=== PATIENT | male | born 1965 | race African-American/Black ===

== ENCOUNTER → 2024-01-23 14:51 | Outpatient (REF) | payer BC, SELFPAY | LOC: HWRAD 14:51 | PROVIDERS: ATTENDING PHYSICIAN Internal Medicine; FAMILY PHYSICIAN Internal Medicine | DX: R79.89 Other specified abnormal findings of blood chemistry (principal); I10 Essential (primary) hypertension | CPT/HCPCS: 76770 ==

== ENCOUNTER 2024-08-03 13:32 | Emergency (ER) | payer BC, SELFPAY ==
[2024-08-03] VITALS (12 sets, daily range): BP systolic 102–137; BP diastolic 76–101
[2024-08-03 14:10] LABS: % Basophils 0.5 % (0-2); % Eosinophils 0.5 % (0-6); % Immature Granulocytes 0.3 % (0-0.5); % Lymphocytes 13.8 % (20.5-51.1); % Monocytes 9.2 % (1.7-9.3); % Neutrophils 75.7 % (42.2-75.2); Absolute Lymphocytes 0.8 10^3/uL (1.2-3.4); Absolute Monocytes 0.5 10^3/uL (0.1-0.6); Absolute Neutrophils 4.4 10^3/uL (1.4-6.5); Hematocrit 47.2 % (39.0-52.0); Hemoglobin 15.7 g/dL (13.0-18.0); Mean Corp Hgb Conc. 33.3 g/dL (33.0-37.0); Mean Corpuscular Hgb 29.7 pg (27.0-31.0); Mean Corpuscular Volume 89.4 fL (80.0-94.0); Mean Platelet Volume 9.8 fL (7.4-10.4); Nucleated Red Blood Cells % 0 % (-); Platelet Count 274 10^3/uL (130-400); Red Blood Cell Count 5.28 10^6/uL (4.70-6.10); Red Cell Dist. Width 12.9 % (11.5-14.5); White Blood Cell Count 5.8 10^3/uL (4.8-10.8)
[2024-08-03 14:28] LABS: ALT (SGPT) 26 U/L (0-50); AST (SGOT) 27 U/L (17-59); Alkaline Phosphatase 44 U/L (38-126); Blood Urea Nitrogen 15 mg/dl (9-20); Calcium 9.6 mg/dl (8.4-10.2); Carbon Dioxide 26 mmol/L (22-30); Chloride 102 mmol/L (98-107); Glucose 95 mg/dl (70-99); Potassium 4.9 mmol/L (3.5-5.1); Sodium 140 mmol/L (135-145); Total Bilirubin 0.5 mg/dl (0.2-1.3); eGFR > 60.00
[2024-08-03 14:34] LABS: Troponin I < 0.012 ng/ml
--- NOTE | 2024-08-03 15:36 | ED.GENMED ---
History of Present Illness
General
Chief Complaint: Blood Pressure Problem
Source: patient
Exam Limitations: none
Time Seen by Provider: 08/03/24 15:26
Nursing documentation reviewed up to this point in time: agreed with
History of Present Illness
History of Present Illness:
Patient to ED with complaint of elevated BP readings. Noticed an increase this weekend Reports systolic BP 140's 150's which is high for him. Denies any cp/pressure, SOB. Denies any DOWD, dizziness. States he felt some tingling in his left arm
today, this has resolved. Taking amlodipine and losartan in the AM daily and reports compliance with meds. To ED accompanied by spouse for eval.
Past History
Past History
ED Past Medical History: None
ED Past Surgical History: None
Social History
Tobacco: Non-smoker
Alcohol: None
Drug: None
Employment: Employed
Review of Systems
Review of Systems
All Other Systems: ROS reviewed and negative except as documented in HPI and ROS
Constitutional: Reports no symptoms
EENT: Reports no symptoms
Respiratory: Reports no symptoms
Cardiac: Reports other (Elevated BP readings)
ABD/GI: Reports no symptoms
: Reports no symptoms
Musculoskeletal: Reports no symptoms
Skin: Reports no symptoms
Neurological: Reports other (Tingling in left arm earlier today.)
Psychiatric: Reports no symptoms
Phy Exam
General Physical Exam
General Presentation: well appearing and no apparent distress
General age: appears stated age
General Skin: warm and dry
General Habitus: normal
General Mental: alert
Cardiovascular Exam
Cardiovascular Exam: regular rate/rhythm and no edema
Pulmonary Exam
Pulmonary Exam: lungs clear and no respiratory distress
Musculoskeletal Exam
Musculoskeletal Exam: full ROM and neuro vasc intact
Skin Exam
Skin Exam: normal color, warm/dry and no rash
Psychiatric Exam
Psychiatric Exam: normal mood/affect
Course
Orders/Labs/Results
Orders:
Orders
08/03/24 13:41
Electrocardiogram (*1) Urgent
Reason for Study: Vertigo / Dizzy
EKG- Treatment ONCE
08/03/24 13:54
Complete Blood Count/With Diff Urgent
Comprehensive Metabolic Panel Urgent
Troponin I Urgent
08/03/24 16:36
EKG [Electrocardiogram (*1)] Urgent
Reason for Study: Hypertension, Benign
08/03/24 16:37
EKG- Treatment ONCE
08/03/24 16:45
Troponin I Urgent
Abnormal Lab Results
08/03/24
13:54
Absolute Lymphs (auto) 0.8 L 10^3/uL
(1.2-3.4)
Neutrophils % 75.7 H %
(42.2-75.2)
Lymphocytes % 13.8 L %
(20.5-51.1)
08/03/24 13:54
08/03/24 13:54
Vital Signs
Initial and Last Documented VS:
Initial Vital Signs
Temp Pulse Resp BP Pulse Ox
98.1 F 89 18 137/86 96
08/03/24 13:38 08/03/24 13:38 08/03/24 13:38 08/03/24 13:38 08/03/24 13:38
Last Documented Vital Signs
Temp Pulse Resp BP Pulse Ox
98.1 F 89 18 109/84 96
08/03/24 13:38 08/03/24 13:38 08/03/24 13:38 08/03/24 17:30 08/03/24 13:38
MDM/Problems Addressed
Differential Diagnosis Includes:
Patient to ED for elevated BP readings this weekend. Today noted LUE tingling. COmplaint with current medication regime, Amlodipine and Losartan q AM. BP systolic running mid 130's in ED. Tingling in arm has resolved. No chest pain reported.
NO SOB. He will continue to monitor BP at home. May take losartan 50mg BID if BP is elevated in evenings. WIll follow up with PCP in AM. Given instructions on s/s to return to ED and he is agreeable to plan. DDx
*Pulse Oximetry
Patient hypoxic: no
*EKG
Interpretation: normal
Rate: normal
Rhythm: sinus
*Critical Care Note
Total Time (30-74mins, 75-104mins- exclusive of procedures): Not Applicable
ED Attending Note
-
Portions of this chart may have been created with voice recognition software.� Occasional wrong word or��sound alike� substitutions may have occurred due to the inherent limitations of voice recognition software.
Discharge Plan
Departure
Patient Disposition: Home (Routine Discharge)
Date of Disposition: 08/03/24
Time of Disposition: 17:34
Patient with high blood pressure during this ER visit?: Yes
Discharge Problem:
Elevated blood pressure reading
Instructions: High Blood Pressure (DC)
Prescriptions:
New
losartan 50 mg tablet
50 mg PO BID Qty: 60 0RF
No Action
aspirin 81 MG tablet,delayed release (DR/EC)
81 mg PO DAILY
cholecalciferol (vitamin D3) 1,250 MCG capsule
1,250 mcg PO DAILY
Referrals:
Grady Flores MD [Family Provider] - Tomorrow
Activity Restrictions/Additional Instructions:
Increase Losartan to 50mg every 12 hours.
Interventions
Interventions:
*Risk Screen - Suicide Last Done: 08/03/24 13:40
*General Assessment Last Done: 08/03/24 17:43
*Neglect/Abuse Screening Last Done: 08/03/24 13:40
ED- Fall Risk Assessment Last Done: 08/03/24 17:43
*ED COVID-19 Vaccine History Last Done: 08/03/24 17:43
*Nursing Disposition Last Done: 08/03/24 17:43
ED- Cardiac Assessment Last Done: 08/03/24 15:56
ED- Neurological Assessment Last Done: 08/03/24 15:56
ED- Pulmonary Assessment Last Done: 08/03/24 15:56
Discharge Date and Time
Discharge Date/Time: 08/03/24 17:44
Print Language: ROMANIAN
[2024-08-03 17:27] LABS: Troponin I < 0.012 ng/ml
== END 2024-08-03 17:44 | disposition home or self-care (01) ==
LOC: EMR 13:32
PROVIDERS: Nurse Practitioner; Student in an Organized Health Care Education/Training Program; EMERGENCY PHYSICIAN Emergency Medicine; FAMILY PHYSICIAN Internal Medicine
DX: I10 Essential (primary) hypertension (principal); Z79.899 Other long term (current) drug therapy
CPT/HCPCS: 99283; 80053; 84484; 85025; 93005

== ENCOUNTER 2024-08-09 12:42 | Emergency (ER) | payer BC, SELFPAY ==
[2024-08-09 12:49] VITALS: BP 135/84
--- NOTE | 2024-08-09 13:23 | ED.GENMED ---
History of Present Illness
<Stuart Chavez PA-C - Last Filed: 08/10/24 15:20>
General
Chief Complaint: Chest Pain
Source: patient, records and family
Time Seen by Provider: 08/09/24 12:50
History of Present Illness
History of Present Illness:
59-year-old male with past medical history of hypertension and stage I chronic kidney disease presenting to the emergency department for evaluation after he noticed some left-sided chest discomfort with radiating pain/tingling sensation to his left
upper extremity last night prior to bed, woke up this morning with the same pain but was able to eat breakfast and take his usual blood pressure medication but decided to take a nap following breakfast with the pain somewhat improved upon awakening.
He started to do some work and was going to exercise however got a sensation of fatigue and the recurring discomfort to his chest and tingling to the left upper extremity prompting him to come to the ER for further evaluation. Patient notes his
blood pressure is usually pretty well-controlled with 10 mg of amlodipine and 50 mg of losartan but over the last week or so has noticed that his systolic blood pressure has intermittently gone up as high as 150 and diastolic around 90. Patient
came to the emergency department earlier in the week for evaluation of this and was told he can take an as needed additional 50 mg of losartan at nighttime which she states he had to do twice. Presently patient still notes the mild discomfort to
the chest and fatigue but otherwise no other symptoms. Denies any fevers or recent illnesses, cough, exertional dyspnea/orthopnea/lower extremity edema, abdominal pain, headaches, visual changes or any other concerns. Family history was noted for
father having chronic kidney disease and CHF, mother with history of CAD status post cardiac stent and brother at the age of 57 due to complications from end-stage renal disease
Past History
<Stuart Chavez PA-C - Last Filed: 08/10/24 15:20>
Past History
ED Past Medical History: HTN and Renal failure (stage 1 CKD)
ED Past Surgical History: None
Social History
Tobacco: Non-smoker
Alcohol: None
Drug: None
Personal:
Living: with family
Employment: Employed
Review of Systems
<Stuart Chavez PA-C - Last Filed: 08/10/24 15:20>
Review of Systems
All Other Systems: ROS reviewed and negative except as documented in HPI and ROS
Phy Exam
<Stuart Chavez PA-C - Last Filed: 08/10/24 15:20>
Physical Exam
Physical Exam:
GENERAL: Alert , in no apparent distress
HEAD: NCAT
EYE: conjunctiva clear
NECK: Supple
ENT: o/p clr, mmm.
CARDIAC: Regular rate and rhythm, no murmur
LUNGS: Clear breath sounds bilaterally, no acute respiratory distress, no wheezes/rales/rhonchi
NEUROLOGICAL: Alert and oriented
SKIN: Warm and dry, skin intact.
MUSCULOSKELETAL: well perfused. Easily palpable pulses throughout
PSYCH: Normal and appropriate interaction.
Scores
<Stuart Chavez PA-C - Last Filed: 08/10/24 15:20>
Heart Failure Risk
Heart Failure Risk Score: Not Applicable
Heart Score for Chest Pain Patients
STEMI patient?: No
History: Slightly or Non-Suspicious
ECG: Normal
Age: >45 - <65 years
Risk Factors: 1 or 2 Risk Factors
Troponin: </= Normal Limit
Heart Score for Chest Pain Patients: 2
Heart Score Risk: 2.5% MACE over next 6 weeks
Withdrawal Assessment of Alcohol
Withdrawal Assessment Completed?: Not applicable
<CANDACE Mars - Last Filed: 08/10/24 14:35>
Heart Score for Chest Pain Patients
Heart Score for Chest Pain Patients: 2
Heart Score Risk: 2.5% MACE over next 6 weeks
Course
<Stuart Chavez PA-C - Last Filed: 08/10/24 15:20>
Orders/Labs/Results
Orders:
Orders
08/09/24 12:43
Electrocardiogram (*1) Urgent
Reason for Study: Chest Pain
EKG- Treatment ONCE
08/09/24 13:35
Complete Blood Count/With Diff Urgent
Comprehensive Metabolic Panel Urgent
Magnesium Urgent
TSH Urgent
Troponin I Urgent
08/09/24 15:58
Troponin I Urgent
08/09/24 16:18
Electrocardiogram (*1) Urgent
Reason for Study: Chest Pain
08/09/24 16:19
EKG- Treatment ONCE
Abnormal Lab Results
08/09/24
13:35
Absolute Lymphs (auto) 1.0 L 10^3/uL
(1.2-3.4)
Absolute Monos (auto) 0.7 H 10^3/uL
(0.1-0.6)
Lymphocytes % 17.3 L %
(20.5-51.1)
Monocytes % 11.4 H %
(1.7-9.3)
Alkaline Phosphatase 34 L U/L
(38-126)
08/09/24 13:35
08/09/24 13:35
Vital Signs
Initial and Last Documented VS:
Initial Vital Signs
Temp Pulse Resp BP Pulse Ox
97.9 F 68 16 135/84 100
08/09/24 12:49 08/09/24 12:49 08/09/24 12:49 08/09/24 12:49 08/09/24 12:49
Last Documented Vital Signs
Temp Pulse Resp BP Pulse Ox
97.9 F 59 22 115/89 100
08/09/24 12:49 08/09/24 16:21 08/09/24 16:21 08/09/24 17:09 08/09/24 12:49
<CANDACE Mars - Last Filed: 08/10/24 14:35>
Orders/Labs/Results
Orders:
Orders
08/09/24 12:43
Electrocardiogram (*1) Urgent
Reason for Study: Chest Pain
EKG- Treatment ONCE
08/09/24 13:35
Complete Blood Count/With Diff Urgent
Comprehensive Metabolic Panel Urgent
Magnesium Urgent
TSH Urgent
Troponin I Urgent
08/09/24 15:58
Troponin I Urgent
08/09/24 16:18
Electrocardiogram (*1) Urgent
Reason for Study: Chest Pain
08/09/24 16:19
EKG- Treatment ONCE
Abnormal Lab Results
08/09/24
13:35
Absolute Lymphs (auto) 1.0 L 10^3/uL
(1.2-3.4)
Absolute Monos (auto) 0.7 H 10^3/uL
(0.1-0.6)
Lymphocytes % 17.3 L %
(20.5-51.1)
Monocytes % 11.4 H %
(1.7-9.3)
Alkaline Phosphatase 34 L U/L
(38-126)
08/09/24 13:35
08/09/24 13:35
Vital Signs
Initial and Last Documented VS:
Initial Vital Signs
Temp Pulse Resp BP Pulse Ox
97.9 F 68 16 135/84 100
08/09/24 12:49 08/09/24 12:49 08/09/24 12:49 08/09/24 12:49 08/09/24 12:49
Last Documented Vital Signs
Temp Pulse Resp BP Pulse Ox
97.9 F 59 22 115/89 100
08/09/24 12:49 08/09/24 16:21 08/09/24 16:21 08/09/24 17:09 08/09/24 12:49
<Stuart Chavez PA-C - Last Filed: 08/10/24 15:20>
MDM/Problems Addressed
Differential Diagnosis Includes:
Hypertensive urgency, atypical ACS presentation, stress/anxiety, worsening renal function
MDM/Problems Addressed:
59-year-old male presenting to the emergency department for evaluation of some left-sided chest discomfort and left upper extremity paresthesia beginning last night, continued into the morning with slightly elevated blood pressures. Patient noting
his systolic will fluctuate between 130-150 and diastolic between 80 and 90. Here patient is relatively normotensive. EKG done in triage is nonischemic and unchanged from earlier this week. Will recheck labs and discuss case with cardiology
especially given patient's family history. Disposition pending
Chronic conditions affecting care: HTN and Kidney disease
<Stuart Chavez PA-C - Last Filed: 08/10/24 15:20>
*Pulse Oximetry
Patient hypoxic: no
*EKG
Comparison EKG: no changes
Heart Rate: 58
Rate: bradycardiac
Rhythm: sinus
[place]: normal axis
Ischemia: other (Nonspecific T wave inversion lead III)
*Distributing Clerk Interpretation
Rate: bradycardiac
Rhythm: sinus
*Critical Care Note
Total Time (30-74mins, 75-104mins- exclusive of procedures): Not Applicable
Data Reviewed
Review of Other/Old Records Reveals: Labs and Records
<Stuart Chavez PA-C - Last Filed: 08/10/24 15:20>
Patient Management
Discussion with other providers: Creche Attendant
Escalation/DeEscalation of care consider admission/obs:
Repeat troponin negative. Case have been discussed with cardiology who recommends follow-up via chest pain hotline. Patient will have expedited follow-up through this. Aware of return precautions to the ER. Stable for discharge home.
ED Attending Note
<Stuart Chavez PA-C - Last Filed: 08/10/24 15:20>
-
Portions of this chart may have been created with voice recognition software.� Occasional wrong word or��sound alike� substitutions may have occurred due to the inherent limitations of voice recognition software.
Discharge Plan
Departure
Patient Disposition: Home (Routine Discharge)
Date of Disposition: 08/09/24
Time of Disposition: 17:15
Patient with high blood pressure during this ER visit?: Yes
Discharge Problem:
Chest pain
Instructions: Chest Pain CBC Follow Up
Prescriptions:
No Action
aspirin 81 MG tablet,delayed release (DR/EC)
81 mg PO DAILY
cholecalciferol (vitamin D3) 1,250 MCG capsule
1,250 mcg PO DAILY
losartan 50 mg tablet
50 mg PO BID Qty: 60 0RF
Referrals:
Rod Haddad MD [Active] -
Grady Flores MD [Family Provider] -
Interventions
Interventions:
*Risk Screen - Suicide Last Done: 08/09/24 12:49
*General Assessment Last Done: 08/09/24 12:49
*Neglect/Abuse Screening Last Done: 08/09/24 12:49
*Nursing Disposition Last Done: 08/09/24 17:28
ED- Cardiac Assessment Last Done: 08/09/24 13:41
Discharge Date and Time
Discharge Date/Time: 08/09/24 17:31
Print Language: SWEDISH
[2024-08-09 13:36] VITALS: BMI 31.1
[2024-08-09 13:38] VITALS: BP 112/80
[2024-08-09 13:45] LABS: % Basophils 0.5 % (0-2); % Eosinophils 1.3 % (0-6); % Immature Granulocytes 0.2 % (0-0.5); % Lymphocytes 17.3 % (20.5-51.1); % Monocytes 11.4 % (1.7-9.3); % Neutrophils 69.3 % (42.2-75.2); Absolute Eosinophils 0.1 10^3/uL (0-0.7); Absolute Monocytes 0.7 10^3/uL (0.1-0.6); Absolute Neutrophils 4.1 10^3/uL (1.4-6.5); Hemoglobin 15.2 g/dL (13.0-18.0); Mean Corpuscular Hgb 29.5 pg (27.0-31.0); Mean Corpuscular Volume 89.1 fL (80.0-94.0); Mean Platelet Volume 9.1 fL (7.4-10.4); Nucleated Red Blood Cells % 0 % (-); Platelet Count 248 10^3/uL (130-400); Red Blood Cell Count 5.16 10^6/uL (4.70-6.10); White Blood Cell Count 5.9 10^3/uL (4.8-10.8)
[2024-08-09 13:58] LABS: ALT (SGPT) 22 U/L (0-50); AST (SGOT) 25 U/L (17-59); Albumin 4.5 g/dl (3.5-5.0); Alkaline Phosphatase 34 U/L (38-126); Blood Urea Nitrogen 14 mg/dl (9-20); Calcium 9.1 mg/dl (8.4-10.2); Carbon Dioxide 26 mmol/L (22-30); Chloride 105 mmol/L (98-107); Estimated Creatinine Clearance > 125 ml/min; Glucose 91 mg/dl (70-99); Magnesium 2.3 mg/dl (1.6-2.3); Potassium 4.6 mmol/L (3.5-5.1); Sodium 138 mmol/L (135-145); Total Bilirubin 0.6 mg/dl (0.2-1.3); Total Protein 7.3 g/dl (6.3-8.2); eGFR > 60.00
[2024-08-09 14:08] LABS: Troponin I < 0.012 ng/ml
[2024-08-09 14:14] VITALS: BP 123/86
[2024-08-09 14:28] LABS: TSH 0.56 uIU/ml (0.47-4.68)
[2024-08-09 15:00] VITALS: BP 110/77
[2024-08-09 16:00] VITALS: BP 120/78
[2024-08-09 17:00] LABS: Troponin I < 0.012 ng/ml
[2024-08-09 17:09] VITALS: BP 115/89
== END 2024-08-09 17:31 | disposition home or self-care (01) ==
LOC: EMR 12:42
PROVIDERS: Physician Assistant Medical; EMERGENCY PHYSICIAN Emergency Medicine; FAMILY PHYSICIAN Internal Medicine
DX: R07.89 Other chest pain (principal); I12.9 Hypertensive chronic kidney disease with stage 1 through stage 4 chronic kidney disease, or unspecified chronic kidney disease; N18.1 Chronic kidney disease, stage 1
CPT/HCPCS: 99284; 80053; 83735; 84443; 84484; 85025; 93005

== ENCOUNTER → 2024-11-04 15:59 | Outpatient (REF) | payer BC, SELFPAY | LOC: HWRCS 15:59 | PROVIDERS: ATTENDING PHYSICIAN Internal Medicine; FAMILY PHYSICIAN Internal Medicine | DX: R07.9 Chest pain, unspecified (principal); I10 Essential (primary) hypertension; I44.4 Left anterior fascicular block; N18.2 Chronic kidney disease, stage 2 (mild) | CPT/HCPCS: 93306 ==

== ENCOUNTER → 2024-11-11 11:05 | Outpatient (REF) | payer BC, SELFPAY | LOC: HWRCS 11:05 | PROVIDERS: ATTENDING PHYSICIAN Internal Medicine; FAMILY PHYSICIAN Internal Medicine | DX: R07.9 Chest pain, unspecified (principal); I10 Essential (primary) hypertension; I44.4 Left anterior fascicular block; N18.2 Chronic kidney disease, stage 2 (mild) | CPT/HCPCS: 78452; 93017; A9500 ==

== ENCOUNTER 2025-09-04 04:07 | Emergency (ER) | payer BC, SELFPAY ==
[2025-09-04 04:16] VITALS: BP 147/88
[2025-09-04 04:55] LABS: Hematocrit 43.5 % (39.0-52.0); Hemoglobin 14.8 g/dL (13.0-18.0); Mean Corp Hgb Conc. 34.0 g/dL (33.0-37.0); Mean Corpuscular Volume 88.1 fL (80.0-94.0); Nucleated Red Blood Cells % 0 % (-); Platelet Count 254 10^3/uL (130-400); Red Cell Dist. Width 13.2 % (11.5-14.5)
[2025-09-04 05:11] LABS: ALT (SGPT) 24 U/L (0-50); AST (SGOT) 23 U/L (17-59); Albumin 4.2 g/dl (3.5-5.0); Alkaline Phosphatase 46 U/L (38-126); Blood Urea Nitrogen 16 mg/dl (9-20); Calcium 9.2 mg/dl (8.4-10.2); Carbon Dioxide 23 mmol/L (22-30); Chloride 104 mmol/L (98-107); Glucose 102 mg/dl (70-99); Potassium 4.4 mmol/L (3.5-5.1); Sodium 135 mmol/L (135-145); Total Protein 7.0 g/dl (6.3-8.2); eGFR > 60.00
[2025-09-04 05:24] LABS: Troponin I 0.017 ng/ml
[2025-09-04 07:29] VITALS: BP 111/82
--- NOTE | 2025-09-04 08:04 | ED.GENMED ---
History of Present Illness
<Chuy Ricci MD, Resident - Last Filed: 09/04/25 09:34>
General
Chief Complaint: Chest Pain
Time Seen by Provider: 09/04/25 08:01
History of Present Illness
History of Present Illness:
60 yo M PMH essential HTN, CKD stage 1 p/w sharp, intermittent chest pain in left side, with tingling down left arm, and then jaw tightness.
He first felt the chest pain at noon yesterday, didn't think much of it until he experienced jaw tightness yesterday evening and left arm symptoms.
no relationship to exertion.
some lightheadedness/fatigue but no ena dyspnea.
These symptoms have happened before and he last presented around 07/2024 for that workup was unremarkable.
he specifically denies PMH of HLD, DM
no history of prior ACS
no headache
no abdominal pain
Past History
<Chuy Ricci MD, Resident - Last Filed: 09/04/25 09:34>
Past History
ED Past Medical History: HTN and Renal failure (stage 1 CKD)
ED Past Surgical History: None
Social History
Tobacco: Non-smoker
Alcohol: None
Drug: None
Personal:
Living: with family
Employment: Employed
Review of Systems
<Chuy Ricci MD, Resident - Last Filed: 09/04/25 09:34>
Review of Systems
Constitutional: Reports no symptoms
EENT: Reports other (jaw tightness)
Respiratory: Reports no symptoms
Cardiac: Reports chest pain
ABD/GI: Reports no symptoms
: Reports no symptoms
Musculoskeletal: Reports no symptoms
Neurological: Reports other (lightheadedness)
Phy Exam
<Chuy Ricci MD, Resident - Last Filed: 09/04/25 09:34>
Physical Exam
Physical Exam:
VS: 111/82; HR 79; T 97.7
General: no acute distress
CV: no murmurs on my exam
Pulm: CTAB
Abd: no tenderness to palpation
MSK: no lower extremity edema
Neuro: AOx3, nonfocal
Scores
<Chuy Ricci MD, Resident - Last Filed: 09/04/25 09:34>
Heart Score for Chest Pain Patients
STEMI patient?: No
History: Slightly or Non-Suspicious
ECG: Normal
Age: >45 - <65 years
Risk Factors: 1 or 2 Risk Factors
Troponin: </= Normal Limit
Heart Score for Chest Pain Patients: 2
Heart Score Risk: 2.5% MACE over next 6 weeks
Course
<Chuy Ricci MD, Resident - Last Filed: 09/04/25 09:34>
Orders/Labs/Results
Orders:
Orders
09/04/25 04:12
Electrocardiogram (*1) Urgent
Reason for Study: Other
Other Reason for Exam: Respiratory Distress
Cardiac Monitoring- Treatment ONCE
EKG- Treatment ONCE
IV Insert/Care/Rem.- Treatment PRN
CR Chest - 2 Views Urgent
Comment:
Reason For Exam: respiratory distress
O2 Therapy [RESP] Urgent
Titrate/Wean O2 to maintain O2 sat greater than (%): 93
Special Instructions: TO MAINTAIN CONTINUOUS O2 SATS >/= 93%
Pulse Ox/cont/shift [RESP] Urgent
Quantity: 1
Special Instructions: continuous pulse ox
09/04/25 04:45
Complete Blood Count/With Diff Urgent
Comprehensive Metabolic Panel Urgent
NT-proBNP Urgent
Troponin I Urgent
09/04/25 07:37
EKG- Treatment ONCE
09/04/25 07:45
Electrocardiogram (*1) Urgent
Reason for Study: Chest Pain
09/04/25 08:31
Troponin I Urgent
Abnormal Lab Results
09/04/25
04:45
Absolute Monos (auto) 0.7 H 10^3/uL
(0.1-0.6)
Monocytes % 11.2 H %
(1.7-9.3)
Glucose 102 H mg/dl
(70-99)
09/04/25 04:45
09/04/25 04:45
Vital Signs
Initial and Last Documented VS:
Initial Vital Signs
Temp Pulse Resp BP Pulse Ox
97.7 F 61 20 147/88 99
09/04/25 04:16 09/04/25 04:16 09/04/25 04:16 09/04/25 04:16 09/04/25 04:16
Last Documented Vital Signs
Temp Pulse Resp BP Pulse Ox
97.7 F 57 18 118/79 99
09/04/25 04:16 09/04/25 09:16 09/04/25 09:16 09/04/25 09:16 09/04/25 09:16
<Henry Shoemaker, DO - Last Filed: 09/04/25 08:46>
Orders/Labs/Results
Orders:
Orders
09/04/25 04:12
Electrocardiogram (*1) Urgent
Reason for Study: Other
Other Reason for Exam: Respiratory Distress
Cardiac Monitoring- Treatment ONCE
EKG- Treatment ONCE
IV Insert/Care/Rem.- Treatment PRN
CR Chest - 2 Views Urgent
Comment:
Reason For Exam: respiratory distress
O2 Therapy [RESP] Urgent
Titrate/Wean O2 to maintain O2 sat greater than (%): 93
Special Instructions: TO MAINTAIN CONTINUOUS O2 SATS >/= 93%
Pulse Ox/cont/shift [RESP] Urgent
Quantity: 1
Special Instructions: continuous pulse ox
09/04/25 04:45
Complete Blood Count/With Diff Urgent
Comprehensive Metabolic Panel Urgent
NT-proBNP Urgent
Troponin I Urgent
09/04/25 07:37
EKG- Treatment ONCE
09/04/25 07:45
Electrocardiogram (*1) Urgent
Reason for Study: Chest Pain
09/04/25 08:31
Troponin I Urgent
Abnormal Lab Results
09/04/25
04:45
Absolute Monos (auto) 0.7 H 10^3/uL
(0.1-0.6)
Monocytes % 11.2 H %
(1.7-9.3)
Glucose 102 H mg/dl
(70-99)
09/04/25 04:45
09/04/25 04:45
Vital Signs
Initial and Last Documented VS:
Initial Vital Signs
Temp Pulse Resp BP Pulse Ox
97.7 F 61 20 147/88 99
09/04/25 04:16 09/04/25 04:16 09/04/25 04:16 09/04/25 04:16 09/04/25 04:16
Last Documented Vital Signs
Temp Pulse Resp BP Pulse Ox
97.7 F 57 18 118/79 99
09/04/25 04:16 09/04/25 09:16 09/04/25 09:16 09/04/25 09:16 09/04/25 09:16
<Chuy Ricci MD, Resident - Last Filed: 09/04/25 09:34>
MDM/Problems Addressed
Differential Diagnosis Includes:
ACS, msk strain, anxiety
MDM/Problems Addressed:
chest pain, sharp intermittent with jaw tightness and left arm tingling, some fatigue/lightheadedness but no dyspnea
troponin 0.017
EKG sinus bradycardia
he denies hx of CAD, DM, HLD
He also reports HTN is well controlled (120s/70-80s at home)
CXR was no acute abnormality
Plan:
- trend troponin
- serial EKG
Update:
repeat troponin negative (0.013)
serial EKGs were unremarkable
Patient to be discharged home with chest pain follow-up instructions, and patient is okay with plan.
<Chuy Ricci MD, Resident - Last Filed: 09/04/25 09:34>
*Pulse Oximetry
SaO2: 99
Oxygen Mode of Delivery: Room air
Patient hypoxic: no
*Critical Care Note
Total Time (30-74mins, 75-104mins- exclusive of procedures): Not Applicable
ED Attending Note
<Chuy Ricci MD, Resident - Last Filed: 09/04/25 09:34>
-
Portions of this chart may have been created with voice recognition software.� Occasional wrong word or��sound alike� substitutions may have occurred due to the inherent limitations of voice recognition software.
<Henry Shoemaker, DO - Last Filed: 09/04/25 08:46>
ED Attending Note
Patient seen and examined by attending physician: Yes
I performed a history and physical exam of patient and discussed management with resident, I reviewed resident's note and agree with documented findings and plan of care.: Yes
ED Attending Note:
I reviewed and agree with history treatment plan by Chuy Ricci MD. My exam revealed
Physical Exam
General: no apparent distress, not acutely ill
Neck: supple. no meningeal signs. normal posterior pharynx
Heart: s1/s2 regular rate and rhythm, no murmur. equal radial
pulses.
HEENT: Pupils equal round reactive to light, EOMI
Lungs: no acute respiratory distress. clear bilaterally
Abdomen: normal bowel sounds. not tender. no CVAT
Neuro: alert and oriented. no focal neurological deficits cranial nerves II through XII intact
Skin: no rash
Psychiatric: well kept. interactive and cooperative
Extremities: no edema. no calf tenderness. negative homans. good distal pulses
60-year-old male with chest pain and jaw pain. Show EKG normal and negative initial troponin. Patient asymptomatic at this time. Has had normal stress echo in the past. Will check repeat troponin, and plan for follow-up with cardiology.
Discharge Plan
Departure
Patient Disposition: Home (Routine Discharge)
Date of Disposition: 09/04/25
Time of Disposition: 09:24
Patient with high blood pressure during this ER visit?: No
Condition: Good
Discharge Problem:
Chest pain
Instructions: Chest Pain CBC Follow Up
Prescriptions:
No Action
aspirin 81 MG tablet,delayed release (DR/EC)
81 mg PO DAILY
cholecalciferol (vitamin D3) 1,250 MCG capsule
1,250 mcg PO DAILY
losartan 50 mg tablet
50 mg PO BID Qty: 60 0RF
Referrals:
UNKNOWN - PT DOES,NOT KNOW [Unknown Provider]
Interventions
Interventions:
*General Assessment Last Done: 09/04/25 04:16
*Neglect/Abuse Screening Last Done: 09/04/25 04:16
*ED COVID-19 Vaccine History Last Done: 09/04/25 04:16
*ED Influenza Vaccine History Last Done: 09/04/25 04:16
[facility] Risk Assessment Tool Last Done: 09/04/25 08:42
*Risk Screen - Suicide (C-SSRS) Last Done: 09/04/25 08:42
ED- Cardiac Assessment Last Done: 09/04/25 08:42
Discharge Date and Time
Print Language: PU[place] R[place]
[2025-09-04 09:16] VITALS: BP 118/79
[2025-09-04 09:18] LABS: Troponin I 0.013 ng/ml
== END 2025-09-04 10:07 | disposition home or self-care (01) ==
LOC: EMR 04:07
PROVIDERS: Emergency Medicine; Physician Assistant; EMERGENCY PHYSICIAN Emergency Medicine; FAMILY PHYSICIAN Internal Medicine
DX: R07.9 Chest pain, unspecified (principal); I12.9 Hypertensive chronic kidney disease with stage 1 through stage 4 chronic kidney disease, or unspecified chronic kidney disease; N18.1 Chronic kidney disease, stage 1; Z79.82 Long term (current) use of aspirin
CPT/HCPCS: 99284; 71046; 80053; 83880; 84484; 85025; 93005